=== PATIENT | male | born 1960 | race Caucasian/White ===

== ENCOUNTER 2024-04-29 16:55 | Emergency (ER) | payer BC ==
[2024-04-29 17:06] VITALS: RESP 20; TEMP 97.2; O2SAT 97
[2024-04-29] MEDS ORDERED: XYLOCAINE 1% HCL 20 ML MDV ONE (17:10)
[2024-04-29] MEDS: Adacel Vial IM ONE (17:15)
[2024-04-29] MEDS ORDERED: Adacel Vial IM ONE (17:15)
--- NOTE | 2024-04-29 17:39 | ERPHSYRPT ---
- History of Present Illness Time Seen by Provider: 04/29/24 16:56 Source: patient Exam Limitations: no limitations Patient Subjective Stated Complaint: PT states "I was moving a piece of furniture and I am nut sure if I cut my finger or if it got smashed or bothm" Triage Nursing Assessment: Pt presented alert and oriented X 3, skin pwd. Pt has laceration throught the nail and pad of his second digit of right hand. Physician History: Patient is here with distal fingertip laceration, second digit right finger. Patient states he was moving furniture just prior to arrival. He is not up-to-date on his tetanus shot. Allergies/Adverse Reactions: Penicillins Allergy (Severe, Verified 04/29/24 17:06) Home Medications: Empagliflozin [Jardiance] 10 mg PO DAILY 04/29/24 [History] Hx Tetanus, Diphtheria Vaccination/Date Given: No Hx Influenza Vaccination/Date Given: No Hx Pneumococcal Vaccination/Date Given: No Immunizations Up to Date: No Travel Risk - International Travel Have you traveled outside of the country in past 3 weeks: No - Emerging Infectious Disease Are you exhibiting symptoms associated with any current EIDs: No - Past Medical History Pertinent Past Medical History: Yes Endocrine Medical History: Diabetes Type II - Past Surgical History Past Surgical History: Yes Gastrointestinal: Appendectomy - Social History Smoking Status: Never smoker Exposure to second hand smoke: No Drug Use: none - Social Determinants of Health Will the patient participate in the screening: Declined to provide - Nursing Vital Signs Nursing Vital Signs: Initial Vital Signs Blood Pressure 135/87 04/29/24 17:01 O2 Sat by Pulse Oximetry 93 L 04/29/24 17:01 Pain Scale Pain Intensity 7 - Physical Exam SpO2: 97 Comments: 04/29/24 17:38 Review of Systems Constitutional: Negative for fever. HENT: Negative for congestion. Respiratory: Negative for shortness of breath. Cardiovascular: Negative for chest pain. Gastrointestinal: Negative for abdominal pain. Genitourinary: Negative for dysuria. Musculoskeletal: Negative for back pain. Skin: Negative for rash. Neurological: Negative for headaches. Psychiatric/Behavioral: Negative for behavioral problems. All other systems reviewed and are negative. Physical Exam Vitals signs and nursing note reviewed. Constitutional: Appearance: Patient is well-developed. HENT: Head: Normocephalic and atraumatic. Eyes: Conjunctiva/sclera: Conjunctivae normal. Neck: Musculoskeletal: Normal range of motion. Trachea: No tracheal deviation. Cardiovascular: Rate and Rhythm: Normal rate. Pulmonary: Effort: Pulmonary effort is normal. No respiratory distress. Abdominal: Palpations: Abdomen is soft. Musculoskeletal: General: 2.5 cm distal finger laceration. It does go through the fingernail but does not go through the nailbed. Partial detachment of the skin, amputation with minimal left. No obvious deformity, sensation intact, 2+ capillary refill, 2 point tactile discrimination intact. 5 out of 5 strength. Full range of motion with pain. Compartments are soft, nontender. Overlying skin shows no tenting, bruising, ecchymosis. Skin: General: Skin is warm and dry. Neurological/ Psychiatric: Mental Status: Mental status, behavior, interaction with environment is appr opriate for patient's age and condition Procedures - Laceration/Wound Repair Finger Time of Procedure: 18:10 Wound Location: Right (Right index finger) Wound Length (cm): 2.5 Wound's Depth, Shape: irregular (Circular flap 2.5 cm over distal fingertip amputation going through nail) Wound Explored: no foreign body noted Irrigated: Yes Hibiclens Prep: Yes Anesthesia: digital block, 1% Lidocaine Volume Anesthetic (ccs): 5 Wound Debrided: minimal Wound Repaired With: sutures Suture Size/Type: 3-0, prolene Number of Sutures: 8 Layer Closure?: No Sterile Dressing Applied?: Yes Splint Applied?: Yes Sling Applied?: No - Course Nursing assessment & vital signs reviewed: Yes Ordered Tests: Active Orders 24 hr Category Date Time Status FINGER(S) Stat Exams 04/29/24 17:10 Taken Medication Summary Discontinued Medications Generic Name Dose Route Start Last Admin Trade Name Santiago PRN Reason Stop Dose Admin Hydrocodone Bitart/Acetaminophen 1 tablet 04/29/24 18:23 04/29/24 18:27 Hydrocodone/Acetamin 10-325 Mg Tablet PO 04/29/24 18:24 1 tablet ONCE ONE Administration Hydrocodone Bitart/Acetaminophen Confirm 04/29/24 18:26 Hydrocodone/Acetamin 10-325 Mg Tablet Administered 04/29/24 18:27 Dose 1 tablet .ROUTE .STK-MED ONE Diphtheria/Tetanus/Acell Pertussis 0.5 ml 04/29/24 17:10 04/29/24 17:15 Tdap --Diph,Pertuss(Acell),Tet Vac/Pf 0.5 Ml Vial IM 04/29/24 17:11 0.5 ml .ONCE ONE Administration Diphtheria/Tetanus/Acell Pertussis Confirm 04/29/24 17:15 Tdap --Diph,Pertuss(Acell),Tet Vac/Pf 0.5 Ml Vial Administered 04/29/24 17:16 Dose 0.5 ml IM .STK-MED ONE Lidocaine HCl Confirm 04/29/24 17:10 Lidocaine Hcl 1% 20 Ml Mdv 20 Ml Ml Administered 04/29/24 17:11 Dose 1 ml .ROUTE .STK-MED ONE - Progress Progress: improved Progress Note: 04/29/24 17:39 Laceration repaired as above. 04/29/24 18:11 Eight 3-0 Prolene sutures were placed. Patient will need to follow-up with orthopedic surgery on Thursday, May 03 for reevaluation and wound check. We will discharge patient home on Keflex. 04/29/24 18:50 I personally reviewed the x-ray I did not see an obvious fracture. However there could be a subtle fracture, radiology read pending at this point in time. Plan for close follow-up with orthopedic surgery as above. Transfer of care to Dr. Tomlinson at 7 PM. He will follow-up on imaging and discuss it with the patient. Counseled pt/family regarding: diagnosis, need for follow-up, rad results - Departure Departure Disposition: Home Clinical Impression: Laceration of index finger Condition: Stable Critical Care Time: No Referrals: DOCTOR,NO FAMILY [Primary Care Provider] - Follow up/PCP as directed DEBO GONZALEZ NP [NON-STAFF PHY W/O PRIVILEGES] - Follow up/PCP as directed Instructions: Laceration Repair With Stitches (DC) Additional Instructions: Go to Ortho walk-in clinic on May 03Thursday between 8 and 10 AM. See attached for location. You will need sutures removed in 7 to 10 days. Prescriptions: Cephalexin Mh 500 mg [Keflex 500 mg] 500 mg PO BID 10 Days #20 cap
[2024-04-29 18:08] VITALS: BP 115/79; PULSE 68
[2024-04-29] MEDS ORDERED: NORCO 10-325 MG ONE (18:26)
[2024-04-29] MEDS: NORCO 10-325 MG PO ONE (18:27)
--- NOTE | 2024-04-29 22:22 | XRAY ---
Indication: Laceration. Comparison: None 3 view right 2nd finger demonstrates osteopenia, mild/moderate degenerative changes all visualized IP/MCP joints, and distal soft tissue swelling/laceration. No other bony, articular, or soft tissue abnormalities.
== END 2024-04-29 19:02 | disposition home or self-care (01) ==
LOC: ED 16:55
DX: S61.310A Laceration without foreign body of right index finger with damage to nail, initial encounter (principal); E11.9 Type 2 diabetes mellitus without complications; Z79.899 Other long term (current) drug therapy; Z23 Encounter for immunization
CPT/HCPCS: 12001; 73140; 90471; 90715; 99283; A9270-GY